=== PATIENT | female | born 1965 | race Two or more races ===

== ENCOUNTER → 2017-08-24 19:03 | Outpatient (CLI) | payer OTHER | END | disposition home or self-care (01) | LOC: LAB 09:31 | DX: N39.0 Urinary tract infection, site not specified (principal) ==

== ENCOUNTER → 2017-08-24 | Outpatient (CLI) | payer OTHER ==
[~2017-08-24] MED LIST: AMBIEN10 MG PO; CIPRO750 MG PO; Colace 100MG PO; ULTRACET PO
== END | disposition home or self-care (01) ==
LOC: MAMO-SONO 09:45
DX: N60.21 Fibroadenosis of right breast (principal); N60.22 Fibroadenosis of left breast; Z12.31 Encounter for screening mammogram for malignant neoplasm of breast

== ENCOUNTER 2017-11-05 12:02 | Emergency (ER) | payer OTHER ==
[~2017-11-05] VITALS: Ht 162.6 cm; Wt 53.5 kg
[2017-11-05] MEDS ORDERED: HUMIRA10 MG/0.2 (12:28)
== END 2017-11-05 19:56 | disposition home or self-care (01) ==
LOC: ER 12:02 → CPU-OBS 12:29 → ER 12:29
DX: R07.89 Other chest pain (principal); R00.2 Palpitations; R51 Headache
CPT/HCPCS: G0378; G0379; 93005; 70450

== ENCOUNTER 2017-11-07 09:03 | Outpatient (CLI) | payer OTHER ==
[~2017-11-07 09:03] MED LIST changes: +HUMIRA10 MG/0.2
== END 2017-11-07 16:00 | disposition home or self-care (01) ==
LOC: MRI 09:03
DX: M50.00 Cervical disc disorder with myelopathy, unspecified cervical region (principal)
CPT/HCPCS: 72141

== ENCOUNTER 2018-03-08 15:35 | Outpatient (CLI) | payer OTHER | END 2018-03-08 17:00 | disposition home or self-care (01) | LOC: RAD 15:35 | DX: M79.641 Pain in right hand (principal) ==

== ENCOUNTER 2022-07-18 10:04 | Outpatient (CLI) | payer OTHER | END 2022-07-18 10:20 | disposition home or self-care (01) | LOC: MAMO-SONO 10:04 | PROVIDERS: ATTEND Anesthesiology | DX: N60.29 Fibroadenosis of unspecified breast (principal) ==

== ENCOUNTER 2024-01-18 10:48 | Outpatient (CLI) | payer OTHER | END 2024-01-18 11:00 | disposition home or self-care (01) | LOC: MAMO-SONO 10:48 | PROVIDERS: ATTEND Dermatology | DX: N64.89 Other specified disorders of breast (principal) ==

== ENCOUNTER 2024-01-18 11:16 | Outpatient (CLI) | payer OTHER | END 2024-01-18 11:18 | disposition home or self-care (01) | LOC: NUCLEAR 11:16 | PROVIDERS: ATTEND Dermatology | DX: Z13.820 Encounter for screening for osteoporosis (principal); M81.0 Age-related osteoporosis without current pathological fracture ==